=== PATIENT | male | born 1980 | race Caucasian/White ===

== ENCOUNTER 2016-08-01 08:31 | Day surgery (SDC) | payer OTHER ==
[~2016-08-01 08:31] MED LIST: DEXAMETHASONE SOD PHOSPHATE 4 MG/ML 1 ML VIAL IV ONE; FAMOTIDINE 20 MG/2 ML VIAL IV ONE; Pre Op ABX Message 1 EACH MISC MISCELLANE ONE
[2016-08-01] MEDS ORDERED: LACTATED RINGERS 1,000 ML IV SCH (09:26)
[2016-08-01] MEDS ORDERED: SCOPOLAMINE 1.5MG/72HR PATCH TRANSDERM ONE (09:26)
[2016-08-01] MEDS ORDERED: HYDROmorphone 1 MG/ML 1 ML SYRINGE IVP PRN (09:26)
[2016-08-01] MEDS ORDERED: MIDAZOLAM 2 MG/2 ML VIAL IV PRN (09:26)
[2016-08-01] MEDS ORDERED: ONDANSETRON 4 MG/2 ML VIAL IVP ONE (09:26)
[2016-08-01] MEDS ORDERED: DEXAMETHASONE SOD PHOSPHATE 10 MG/ML 1 ML VIAL IV ONE (09:30)
[2016-08-01] MEDS ORDERED: LIDOCAINE 1% 20 ML VIAL (10MG/ML) FOR IV START INTRADERMA ONE (09:42)
[2016-08-01] MEDS: OXYMETAZOLINE 0.05% NASL SPRAY 15 ML NASAL ONE ×5 (09:47→10:11)
[2016-08-01] MEDS ORDERED: PROPOFOL 10 MG/ML 20 ML VIAL IV ONE (10:27)
[2016-08-01] MEDS ORDERED: MIDAZOLAM 2 MG/2 ML VIAL ONE (10:27)
[2016-08-01] MEDS ORDERED: fentaNYL (PF) 50 MCG/ML 2 ML AMP ONE (10:27)
[2016-08-01] MEDS ORDERED: LIDOCAINE 1% INJ 10MG/ML (20 ML MDV) ONE (10:27)
[2016-08-01] MEDS ORDERED: SUCCINYLCHOLINE CHLORIDE 100 MG/5 ML SYR IV ONE (10:27)
[2016-08-01] MEDS ORDERED: DEXAMETHASONE SOD PHOS (MDV) 100 MG/10 ML VIAL ONE (10:27)
[2016-08-01] MEDS ORDERED: LIDOCAINE 1%-EPI 1:100,000 20 ML VIAL SQ ONE ×3 (10:44)
[2016-08-01] MEDS ORDERED: LACTATED RINGERS 1,000 ML IV ONE (10:56)
[2016-08-01] MEDS ORDERED: BACITRACIN 500 UNIT/GM OINT 28.4 GM TUBE TOPICAL ONE (11:15)
[2016-08-01 11:32] VITALS: TEMP 98.9
[2016-08-01 11:47] VITALS: RESP 18
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
[2016-08-01] MEDS ORDERED: HYDROcodone/APAP 5-325MG 1 EACH TAB PO ONE (12:29)
[2016-08-01 12:35] VITALS: PULSE 77
[2016-08-01 12:56] VITALS: BP 132/74
== END 2016-08-01 13:08 | disposition home or self-care (01) ==
LOC: OR 08:31
PROVIDERS: ATTEND Otolaryngology
DX: J34.2 Deviated nasal septum (principal); J34.3 Hypertrophy of nasal turbinates
CPT/HCPCS: 88300; 30520; 30140; J2250; J1100 ×2; J2405; J2001; J3010; J0330; J2704

== ENCOUNTER → 2019-12-04 | Outpatient (CLI) | payer OTHER ==
--- NOTE | 2019-12-05 23:15 | XR ---
EXAMINATION TYPE: XR lumbosacral spine 5 views DATE OF EXAM: 12/04/2019 COMPARISON: NONE HISTORY: 39-year-old male degenerative disc disease, low back pain with numbness down right leg TECHNIQUE: 5 views FINDINGS: Transitional lumbosacral segment denoted as a sacralized L5. Small T12 ribs. Facet arthropathy lower lumbar spine. No pars interarticularis defect. Mild multilevel degenerative disc disease. Vertebral b charles heights are preserved. Trace grade 1 retrolisthesis at L1-L2. Remaining alignment is maintained. IMPRESSION: 1. Transitional lumbosacral segment is noted as a sacralized L5. 2. Facet arthropathy lower lumbar spine. Mild degenerative disc disease. 3. Trace grade 1 retrolisthesis at L1-L2.
== END | disposition home or self-care (01) ==
LOC: RADXRMAIN 17:04
PROVIDERS: ATTEND Physical Medicine & Rehabilitation
DX: M51.17 Intervertebral disc disorders with radiculopathy, lumbosacral region (principal); M47.897 Other spondylosis, lumbosacral region
CPT/HCPCS: 72110

== ENCOUNTER → 2020-01-04 | Outpatient (CLI) | payer OTHER ==
--- NOTE | 2020-01-04 19:30 | MR ---
EXAMINATION TYPE: MR shoulder RT wo con DATE OF EXAM: 01/04/2020 COMPARISON: None HISTORY: Injury of tendon of the rotator cuff of right shoulder Technique: Multiplanar, multiecho imaging on a 3.0 Ariadne magnet is performed through the shoulder. Findings: Long head of the biceps tendon is within the bicipital groove. Small amount of fluid is adj acent. Mild tendinosis could be considered. There is a small joint effusion present. Some deltoid or subacromial bursal fluid is present. Subchon dral cyst formation is near the insertion of the supraspinatus tendon. There is increased signal within the substance of the distal supraspinatus tendon compatible with a t ear. No retraction is evident. No muscle atrophy muscle or tendon retraction of the rotator cuff is e vident. Glenoid labrum as visualized on this noncontrast study appears intact. Rotator cuff tendons are evaluated. The acromioclavicular junction is hypertrophied which can contrib [place] to impingement syndrome. IMPRESSIONS: 1. Partial tear of the distal supraspinatus tendon. No retraction or muscle atrophy is evident. 2. Small joint effusion. 3. Mild long head biceps tendon tendinosis.
== END | disposition home or self-care (01) ==
LOC: RADMRIMAIN 11:40
PROVIDERS: ATTEND Family Medicine
DX: M75.111 Incomplete rotator cuff tear or rupture of right shoulder, not specified as traumatic (principal)

== ENCOUNTER 2024-04-21 06:00 | Day surgery (SDC) | payer BC ==
[2024-04-20 08:37] VITALS: BMI 24.3
[~2024-04-21 06:00] MED LIST changes: -DEXAMETHASONE SOD PHOSPHATE 4 MG/ML 1 ML VIAL IV ONE; -FAMOTIDINE 20 MG/2 ML VIAL IV ONE; +LIDOCAINE 1% (10MG/ML) FOR IV START INTRADERMA PRN; -Pre Op ABX Message 1 EACH MISC MISCELLANE ONE
[2024-04-21 06:28] VITALS: TEMP 97.3
[2024-04-21] MEDS: LACTATED RINGERS 1,000 ML IV SCH (06:31)
[2024-04-21] MEDS: IV FLUID CONTINUATION 1,000 ML IV ONE (06:32)
[2024-04-21] MEDS ORDERED: PROPOFOL 10 MG/ML 20 ML VIAL IV ONE (07:00)
[2024-04-21] MEDS ORDERED: LIDOCAINE 1% INJ 10MG/ML (20 ML MDV) ONE (07:00)
--- NOTE | 2024-04-21 07:28 | P.PCN ---
Date of Procedure: 04/21/24 Procedure(s) Performed: Brief history: Patient is a pleasant 44-year-old white male scheduled for an elective upper endoscopy as well as colonoscopy as a part of evaluation of iron deficiency anemia and history of alcoholic liver cirrhosis diagnosed 1 year ago. Procedure performed: Esophagogastroduodenoscopy with biopsy Colonoscopy Preoperative diagnosis: Iron deficiency anemia History of liver cirrhosis Anesthesia: MAC Procedure: After informed consent was obtained from the patient was brought into the endoscopy unit and IV sedation was administered by anesthesia under continuous monitoring. Initially upper endoscopy was done. The Olympus GF 160 video endoscope was inserted inserted into the mouth and esophagus intubated without any difficulty and was gradually advanced into the stomach and duodenum and carefully examined. The bulb and second part of the duodenum appeared normal. Biopsies were done from the duodenum to rule out celiac disease. The scope was then withdrawn into the stomach adequately insufflated with air and upon careful examination the antrum had mild gastritis and biopsies were done from this area. Mucosa of the body, cardia and fundus appeared normal. The scope was then withdrawn into the esophagus. The GE junction was located at 40 cm to the incisors. It appeared regular with no erythema erosions or ulcerations. Rest of the esophagus appeared normal. Patient tolerated the procedure well. At this time the patient continued to remain sedation. Initial digital rectal examination was normal. Olympus CF 160 video colonoscope was then inserted into the rectum and gradually advanced to the cecum without any difficulty. Careful examination was performed as the scope was gradually being withdrawn. The prep was excellent. The cecum, ascending colon, transverse colon, descending colon, sigmoid colon and rectum appeared normal. Retroflexion was performed in the rectum and no lesions were noted. Patient tolerated the procedure well. Impression: 1. Upper endoscopy with mild antral gastritis but no evidence of esophagitis or esophageal varices 2. Colonoscopy was within normal limits with no evidence of colorectal neoplasia Recommendations: Findings of this examination were discussed with the patient as well as his family. He was advised to follow the biopsy results. Recommended repeat screening colonoscopy in 10 years.
[2024-04-21 08:01] VITALS: BP 120/77; PULSE 62; RESP 20
== END 2024-04-21 08:13 | disposition home or self-care (01) ==
LOC: ORWHC2ENDO 06:00
PROVIDERS: ATTEND Internal Medicine Gastroenterology
DX: D50.9 Iron deficiency anemia, unspecified (principal); K70.30 Alcoholic cirrhosis of liver without ascites; K29.70 Gastritis, unspecified, without bleeding; Z79.899 Other long term (current) drug therapy
CPT/HCPCS: 88305; 45378; 43239; J2003; J2704